=== PATIENT | male | born 1955 | race Caucasian/White ===

== ENCOUNTER → 2020-08-30 | Outpatient (CLI) | payer BC, OTHER ==
[~2020-08-30] MED LIST: NORCO 7.5-3251 EACH PO
== END ==
LOC: CT 08-15 09:10 → NM 08-15 09:10
DX: C61 Malignant neoplasm of prostate (principal); Z53.8 Procedure and treatment not carried out for other reasons

== ENCOUNTER 2021-02-25 17:32 | Emergency (ER) | payer BC, OTHER | END 2021-02-25 18:15 | disposition left against medical advice (07) | LOC: ER1 17:32 | DX: Z53.21 Procedure and treatment not carried out due to patient leaving prior to being seen by health care provider (principal) ==

== ENCOUNTER 2021-03-10 18:13 | Emergency (ER) | payer BC, OTHER ==
[2021-03-10 19:02] LABS: HEMOGLOBIN 14.2 gm/dl (14.0-17.5); RED BLOOD COUNT 4.73 M/UL (4.20-5.50); WHITE BLOOD COUNT 14.1 K/UL (4.5-11.0)
[2021-03-10 19:30] LABS: BUN/CREATININE RATIO 19 (0-10)
== END 2021-03-10 22:08 | disposition home or self-care (01) ==
LOC: ER1 18:13
PROVIDERS: Physician Assistant
DX: U07.1 COVID-19 (principal)
CPT/HCPCS: 71045; 80053; 82550; 82553; 83874; 83880; 84484; 85025; 93005; 99285